=== PATIENT | male | born 1980 | race Two or more races ===

== ENCOUNTER 2021-07-14 18:38 | Emergency (ER) | payer MEDICAID ==
[~2021-07-14] VITALS: Ht 175.3 cm; Wt 83.9 kg
[2021-07-14 18:41] VITALS: BP 160/92
[2021-07-14] MEDS ORDERED: HYDROcodone-ACET 5/325MG TAB PO ONE (20:00)
== END 2021-07-15 02:13 | disposition left against medical advice (07) ==
LOC: ER 19:02
DX: M25.512 Pain in left shoulder (principal); M25.511 Pain in right shoulder; R51.9 Headache, unspecified; M79.602 Pain in left arm; M79.601 Pain in right arm; E78.5 Hyperlipidemia, unspecified; W17.89XA Other fall from one level to another, initial encounter; Y93.89 Activity, other specified; Y92.89 Other specified places as the place of occurrence of the external cause; Y99.8 Other external cause status
CPT/HCPCS: 70450; 72125; 73030; 73070